=== PATIENT | female | born 1945 | race African-American/Black ===

== ENCOUNTER 2019-02-04 11:25 | Emergency (ER) | payer MEDICARE, OTHER ==
[~2019-02-04] VITALS: Ht 167.6 cm; Wt 81.0 kg
[~2019-02-04 11:25] MED LIST: ALBU8HFA; AMLO5TAB9; ASPI81TA40; CLOP75TA32; DOCU250C91; HYDR-3971; METO-408; OMEP20TA25; ROSU10TA22 PO
[2019-02-04 12:17] VITALS: BP 149/67
== END 2019-02-04 13:17 | disposition left against medical advice (07) ==
LOC: EMS 11:28
DX: R05 Cough (principal); J45.909 Unspecified asthma, uncomplicated; E78.00 Pure hypercholesterolemia, unspecified; I10 Essential (primary) hypertension; Z53.21 Procedure and treatment not carried out due to patient leaving prior to being seen by health care provider

== ENCOUNTER 2019-02-04 16:13 | Emergency (ER) | payer MEDICARE, OTHER ==
[~2019-02-04] VITALS: Ht 167.6 cm; Wt 75.0 kg
[2019-02-04] MEDS ORDERED: IPRATROPIUM BROMIDE 0.5 MG/2.5 ML NEB SOLUTION NEB ONE (17:30)
[2019-02-04] MEDS ORDERED: ALBUTEROL SULFATE 2.5 MG/0.5 ML NEB SOLUTION NEB ONE (17:30)
[2019-02-04 18:21] LABS: BASOPHILS % (AUTO) 1.2 % (0.0-2.0); EOSINOPHILS % (AUTO) 4.2 % (1.0-6.0); HEMATOCRIT 43.6 % (36-46); HEMOGLOBIN 13.8 g/dL (12.0-16.0); LYMPHOCYTES # (AUTO) 1.6 K/uL (1.0-4.8); LYMPHOCYTES % (AUTO) 37.3 % (22.0-44.0); MEAN CORPUSCULAR HEMOGLOBIN 27.6 pg (26.0-34.0); MEAN CORPUSCULAR HGB CONC 31.6 G/dL (31.0-37.0); MEAN CORPUSCULAR VOLUME 87 fL (80-100); MONOCYTES # (AUTO) 0.7 K/uL (0.1-1.0); MONOCYTES % (AUTO) 15.8 % (2.0-9.0); NEUTROPHILS # (AUTO) 1.8 K/uL (1.8-7.7); NEUTROPHILS % (AUTO) 41.5 % (40.0-70.0); PLATELET COUNT (AUTO) 299 K/uL (150-450); RED BLOOD CELL COUNT(AUTO) 4.99 MIL/uL (4.00-5.20); RED CELL DISTRIBUTION WIDTH 15.2 % (11.5-14.5)
[2019-02-04 18:33] LABS: INR 0.9 (0.9-1.1); PROTHROMBIN TIME 9.8 SEC (9.4-11.6)
[2019-02-04 18:36] LABS: ANION GAP 6 mmol/L (8-16); CALCIUM, TOTAL 9.6 mg/dL (8.8-10.5); CARBON DIOXIDE 31 mmol/L (22-29); CHLORIDE 101 mmol/L (98-107); CREATININE 0.95 mg/dL (0.60-1.30); GLUCOSE,RANDOM 82 mg/dL (70-110); SODIUM SERUM 138 mmol/L (136-145); UREA NITROGEN, BLOOD 11 mg/dL (7-18)
[2019-02-04 18:37] LABS: GLOMERULAR FILTR. RATE CALC > 60 mL/min (>60)
[2019-02-04 18:50] LABS: B-TYPE NATRIURETIC PEPTIDE 75 pg/mL (0-100)
[2019-02-04 19:02] LABS: ALANINE AMINOTRANSFERASE 18 U/L (12-78); ALBUMIN 3.9 g/dL (3.4-5.0); ALKALINE PHOSPHATASE 106 U/L (46-116); ASPARTATE AMINOTRANSFERASE 18 U/L (15-37); BILIRUBIN,TOTAL 0.3 mg/dL (0.1-1.0); CREATINE KINASE, TOTAL ONLY 88 U/L (26-192); TOTAL PROTEIN, SERUM 7.8 g/dL (6.4-8.2)
[2019-02-04 20:10] VITALS: BP 136/75
== END 2019-02-04 20:31 | disposition home or self-care (01) ==
LOC: EMS 16:15
DX: J44.9 Chronic obstructive pulmonary disease, unspecified (principal); E78.00 Pure hypercholesterolemia, unspecified; I10 Essential (primary) hypertension; Z87.891 Personal history of nicotine dependence; Z79.899 Other long term (current) drug therapy; Z88.0 Allergy status to penicillin; Z98.890 Other specified postprocedural states
CPT/HCPCS: 93005; 94640

== ENCOUNTER 2021-04-19 22:31 | Inpatient (IN) | payer MEDICARE, OTHER ==
[~2021-04-19] VITALS: Ht 167.6 cm; Wt 74.5 kg
[~2021-04-19 22:31] MED LIST changes: +AMLO-257; -AMLO5TAB9; -ROSU10TA22 PO; +ROSU10TA72 PO
[2021-04-20] MEDS ORDERED: ACETAMINOPHEN 500 MG TABLET PO ONE (01:00)
[2021-04-20 01:15] LABS: BASOPHILS % (AUTO) 1.2 % (0.0-2.0); EOSINOPHILS % (AUTO) 0.6 % (1.0-6.0); HEMATOCRIT 45.4 % (36-46); HEMOGLOBIN 14.4 g/dL (12.0-16.0); LYMPHOCYTES # (AUTO) 1.6 K/uL (1.0-4.8); LYMPHOCYTES % (AUTO) 11.9 % (22.0-44.0); MEAN CORPUSCULAR HEMOGLOBIN 25.9 pg (26.0-34.0); MEAN CORPUSCULAR HGB CONC 31.6 G/dL (31.0-37.0); MEAN CORPUSCULAR VOLUME 82 fL (80-100); MONOCYTES # (AUTO) 1.6 K/uL (0.1-1.0); NEUTROPHILS # (AUTO) 9.9 K/uL (1.8-7.7); NEUTROPHILS % (AUTO) 74.3 % (40.0-70.0); PLATELET COUNT (AUTO) 302 K/uL (150-450); RED BLOOD CELL COUNT(AUTO) 5.56 MIL/uL (4.00-5.20); RED CELL DISTRIBUTION WIDTH 14.8 % (11.5-14.5)
[2021-04-20 01:24] LABS: ANION GAP 17 mmol/L (8-16); CALCIUM, TOTAL 9.6 mg/dL (8.8-10.5); CARBON DIOXIDE 25 mmol/L (22-29); CHLORIDE 100 mmol/L (98-107); CREATININE 0.81 mg/dL (0.60-1.30); GLUCOSE,RANDOM 147 mg/dL (70-110); POTASSIUM 3.6 mmol/L (3.5-5.1); SODIUM SERUM 142 mmol/L (136-145); UREA NITROGEN, BLOOD 12 mg/dL (7-18)
[2021-04-20 01:25] LABS: GLOMERULAR FILTR. RATE CALC > 60 mL/min (>60)
[2021-04-20 01:32] LABS: INR 1.1 (0.9-1.1); PROTHROMBIN TIME 11.4 SEC (9.4-11.6)
[2021-04-20 01:36] LABS: B-TYPE NATRIURETIC PEPTIDE 144 pg/mL (0-100)
[2021-04-20 01:48] LABS: ALANINE AMINOTRANSFERASE 13 U/L (12-78); ALBUMIN 3.7 g/dL (3.4-5.0); ALKALINE PHOSPHATASE 107 U/L (46-116); ASPARTATE AMINOTRANSFERASE 11 U/L (15-37); BILIRUBIN,TOTAL 1.2 mg/dL (0.1-1.0); CREATINE KINASE, TOTAL ONLY 93 U/L (26-192); TOTAL PROTEIN, SERUM 8.2 g/dL (6.4-8.2)
[2021-04-20 02:20] LABS: APPEARANCE,URINE CLEAR (CLEAR); BILIRUBIN,URINE NEGATIVE (NEGATIVE); GLUCOSE, URINE (UA) NEGATIVE (NEGATIVE); KETONES,URINE TRACE mg/dL (NEGATIVE); LEUKOCYTE ESTERASE ,URINE TRACE (NEGATIVE); NITRATE,URINE NEGATIVE (NEGATIVE); OCCULT BLOOD,URINE TRACE (NEGATIVE); PH,URINE 6.5 (5.0-8.0); PROTEIN,URINE NEGATIVE (NEGATIVE); UROBILINOGEN,URINE 0.2 mg/dL (<=1.0)
[2021-04-20 02:21] LABS: BACTERIA,URINE Few /HPF (None Seen); RBC,URINE 0-2 /HPF (0-2); WBC,URINE 0-2 /HPF (0-5)
[2021-04-20] MEDS ORDERED: LIDOCAINE 1% 10 ML VIAL ONE (04:20)
[2021-04-20] MEDS ORDERED: ONDANSETRON HCL 4 MG/2 ML VIAL IVP PRN (05:30)
[2021-04-20] MEDS ORDERED: 0.9% SODIUM CHLORIDE 10 ML SYRINGE IVP PRN (05:30)
[2021-04-20] MEDS ORDERED: ACETAMINOPHEN 325 MG TABLET PO PRN ×2 (05:30→08:00)
[2021-04-20 05:40] LABS: COVID AG,FIA SOURCE NASOPHARYNGEAL
[2021-04-20 05:48] LABS: SPECIMENTYPE,BODY FLUID SYNOVIAL
[2021-04-20 07:31] LABS: CRYSTALS, SYNOVIAL FLUID None Seen (None Seen)
[2021-04-20 07:40] LABS: APPEARANCE,UNSPUN,BODY FLUID TURBID (CLEAR)
[2021-04-20 07:42] LABS: APPEARANCE,SPUN,BODY FLUID CLEAR (CLEAR); BASOPHILS,BODY FLUID 0 %; COLOR,BODY FLUID YELLOW (LT YELLOW); EOSINOPHILS,BF (ANAL) 0 %; LYMPHOCYTES,BODY FLUID 0 %; MONOCYTES,BODY FLUID 20 %; NEUTROPHILS,BODY FLUID 80 %; TOTAL VOLUME,BODY FLUID 25 mL; WBC, BODY FLUID 3460 /cu. mm.
[2021-04-20] MEDS ORDERED: OxyCODONE HCL/ACETAMINOPHEN 5-325 MG TABLET PO PRN (08:00)
[2021-04-20] MEDS ORDERED: MAGNESIUM HYDROXIDE SUSPENSION 30 ML UDCUP PO PRN (08:00)
[2021-04-20] MEDS: AmLODIPine BESYLATE 5 MG TABLET PO SCH (09:23)
[2021-04-20] MEDS: METOPROLOL TARTRATE 25 MG TABLET PO SCH ×2 (09:23→20:01)
[2021-04-20] MEDS: ASPIRIN 81 MG CHEWABLE TABLET PO SCH (09:23)
[2021-04-20] MEDS: FAMOTIDINE 20 MG TABLET PO SCH ×2 (09:23→20:00)
[2021-04-20] MEDS: CLOPIDOGREL BISULFATE 75 MG TABLET PO SCH (09:23)
[2021-04-20 10:22] VITALS: BP 173/73
[2021-04-20] MEDS: OxyCODONE HCL/ACETAMINOPHEN 5-325 MG TABLET PO PRN ×2 (11:36→20:02)
[2021-04-20 16:00] VITALS: BP 154/75
[2021-04-20 20:42] VITALS: BP 116/70
[2021-04-20] MEDS ORDERED: ROSUVASTATIN CALCIUM 10 MG TABLET PO SCH (21:00)
[2021-04-21 04:29] VITALS: BP 117/65
[2021-04-21] MEDS: OxyCODONE HCL/ACETAMINOPHEN 5-325 MG TABLET PO PRN (04:41)
[2021-04-21 08:11] VITALS: BP 104/65
[2021-04-21] MEDS: CLOPIDOGREL BISULFATE 75 MG TABLET PO SCH (08:20)
[2021-04-21] MEDS: METOPROLOL TARTRATE 25 MG TABLET PO SCH (08:20)
[2021-04-21] MEDS: ASPIRIN 81 MG CHEWABLE TABLET PO SCH (08:21)
[2021-04-21] MEDS: FAMOTIDINE 20 MG TABLET PO SCH (08:21)
[2021-04-21] MEDS: AmLODIPine BESYLATE 5 MG TABLET PO SCH (08:21)
[2021-04-21 15:08] VITALS: BP 122/70
== END 2021-04-21 18:15 | disposition home health service (06) | DRG 547 ==
LOC: EMS 22:39 → 6S 04-20 06:00
PROVIDERS: ADMIT Internal Medicine; ATTEND Internal Medicine
PROC: 0S9D3ZZ Drainage of Left Knee Joint, Percutaneous Approach (ICD-10-PCS; principal; 2021-04-20)
DX: M02.362 Reiter's disease, left knee (principal); M17.12 Unilateral primary osteoarthritis, left knee; M25.462 Effusion, left knee; I10 Essential (primary) hypertension; I25.10 Atherosclerotic heart disease of native coronary artery without angina pectoris; J44.9 Chronic obstructive pulmonary disease, unspecified; F03.90 Unspecified dementia, unspecified severity, without behavioral disturbance, psychotic disturbance, mood disturbance, and anxiety; G89.29 Other chronic pain; Z96.659 Presence of unspecified artificial knee joint; E78.00 Pure hypercholesterolemia, unspecified; Z79.02 Long term (current) use of antithrombotics/antiplatelets; Z87.891 Personal history of nicotine dependence; Z88.0 Allergy status to penicillin; Z59.0 Homelessness
CPT/HCPCS: 20610; 70450; 71045; 80053; 81001; 82550; 83605; 83880; 84484; 85025; 85610; 85730; 87070; 87205; 89051; 89060; 93005; 97116; 97162; 97530; 99285; J3490; 36415-L1; 36415-TC